=== PATIENT | female | born 1960 | race Caucasian/White ===

== ENCOUNTER 2025-09-27 05:04 | Emergency (ER) | payer OTHER ==
[~2025-09-27] VITALS: Ht 167.6 cm; Wt 88.5 kg
[~2025-09-27 05:04] MED LIST: HYDACE5325 PO; METO5A PO; RXHYD5325 PO
[2025-09-27] MEDS ORDERED: METO50ER PO (05:44)
[2025-09-27] MEDS ORDERED: BUPROPION XL150 M1 PO (05:44)
[2025-09-27] MEDS ORDERED: TOPI100 PO (05:44)
[2025-09-27] MEDS ORDERED: SITA50T2 PO (05:45)
[2025-09-27] MEDS ORDERED: OMEP20ER PO (05:45)
[2025-09-27] MEDS ORDERED: Ondansetron HCl 2 MG / ML 2ML Vial IV ONE ×2 (05:50→09:00)
[2025-09-27 06:34] LABS: Source, Urine Clean Catch
[2025-09-27 06:40] LABS: Bilirubin, Urine Neg (Neg); Color, Urine Yellow (P-Yellow); Glucose Qualitative, Urine Neg (Neg); Ketones, Urine 1+ (Neg); Leukocyte Esterase, Urine 2+ (Neg); Protein, Urine 2+ (Neg); Specific Gravity, Urine 1.015 (1.003-1.022); Urobilinogen, Urine NORM (Normal)
[2025-09-27] MEDS ORDERED: NS 1,000 ML IV SCH ×2 (06:45→09:00)
[2025-09-27] MEDS ORDERED: Ketorolac Tromethamine 15mg Vial IV ONE ×2 (06:45→08:55)
[2025-09-27 07:05] LABS: Red Blood Cells, Urine 25-50 /hpf (0-2)
[2025-09-27 10:09] LABS: BASOPHILS ABSOLUTE AUTO 0.03 K/mm3 (0.00-0.23); BASOPHILS PERCENT AUTO 0 % (0-2); EOSINOPHILS ABSOLUTE AUTO 0.01 K/mm3 (0.00-0.68); EOSINOPHILS PERCENT AUTO 0 % (0-6); Hematocrit 43.1 % (33.0-51.0); Hemoglobin 14.4 g/dL (11.5-16.0); IMMATURE GRAN ABSOLUTE AUTO 0.04 K/mm3 (0.00-0.10); IMMATURE GRAN PERCENT AUTO 0 % (0-1); LYMPHOCYTES ABSOLUTE AUTO 1.19 K/mm3 (0.84-5.20); LYMPHOCYTES PERCENT AUTO 9 % (21-46); MONOCYTES ABSOLUTE AUTO 0.54 K/mm3 (0.16-1.47); MONOCYTES PERCENT AUTO 4 % (4-13); Mean Corpuscular HGB Conc 33.4 g/dL (31.5-36.5); Mean Corpuscular Volume 86 fL (80-100); NEUTROPHILS ABSOLUTE AUTO 10.86 K/mm3 (1.96-9.15); NEUTROPHILS PERCENT AUTO 86 % (41-73); NRBC ABSOLUTE 0.00 K/mm3 (0.00-0.02); NRBC Auto 0.0 /100 WBC (0.0-0.2); Platelet Count 200 K/mm3 (150-400); RDW Coefficient Variation 13.2 % (11.7-14.2); RDW Standard Deviation 40.8 fL (35.1-46.3)
[2025-09-27 10:10] LABS: Alanine Aminotransfer (ALT/SGP 30.0 U/L (12-78); Albumin, Blood 4.1 g/dL (3.4-5.0); Albumin/Globulin Ratio 1.0 (0.8-1.8); Anion Gap 13.0 mmol/L (3-11); Aspartate Aminotrans (AST/SGOT 22.0 U/L (12-37); Bilirubin, Total 0.5 mg/dL (0.1-1.0); Blood Urea Nitrogen 18.0 mg/dL (8-24); CO2, Blood 22.0 mmol/L (21-32); Calcium, Blood 9.7 mg/dL (8.5-10.1); Chloride, Blood 106.0 mmol/L (98-108); Creatinine, Blood 1.13 mg/dL (0.40-1.00); Globulin, Blood 4.2 g/dL (2.2-4.0); Glucose, Blood 110.0 mg/dL (70-99); Potassium, Blood 4.1 mmol/L (3.5-5.5); Sodium, Blood 137.0 mmol/L (136-145); Total Protein, Blood 8.3 g/dL (6.4-8.2)
[2025-09-27] MEDS ORDERED: ONDA4ODT MM (10:29)
[2025-09-27 11:00] VITALS: BP 152/75
== END 2025-09-27 11:09 | disposition home or self-care (01) ==
LOC: ER 05:04
PROVIDERS: Emergency Medicine
DX: R10.12 Left upper quadrant pain (principal); R31.9 Hematuria, unspecified; D72.819 Decreased white blood cell count, unspecified; K21.9 Gastro-esophageal reflux disease without esophagitis; Z88.5 Allergy status to narcotic agent; Z79.899 Other long term (current) drug therapy
CPT/HCPCS: 80053; 81001; 83690; 85025; 93005; 93010; 96361; 96374; 96375; 99284-25; J1885; J2405; J7030